=== PATIENT | female | born 1990 | race Two or more races ===

== ENCOUNTER 2017-06-05 18:31 | Emergency (ER) | payer SELFPAY ==
[~2017-06-05] VITALS: Ht 154.9 cm; Wt 56.0 kg
[2017-06-05] MEDS ORDERED: PRENATAL FORMU1 EAC4 PO (19:42)
[2017-06-05 22:12] LABS: URINE BILIRUBIN NEGATIVE (NEG); URINE BLOOD MODERATE (NEG); URINE GLUCOSE (UA) NEGATIVE (NEG); URINE KETONE MODERATE (NEG); URINE LEUKOCYTE ESTERASE NEGATIVE (NEG); URINE NITRITE NEGATIVE (NEG); URINE PROTEIN SMALL (NEG); URINE SPECIFIC GRAVITY 1.025 (1.003-1.030)
[2017-06-05 22:29] LABS: URINE APPEARANCE CLEAR; URINE COLOR BROWN
[2017-06-05 22:31] LABS: URINE WBC 0-1 /[HPF] (0-5)
== END 2017-06-05 23:38 ==
LOC: EDMED 18:31
PROVIDERS: Emergency Medicine
PROC: BY49ZZZ Ultrasonography of First Trimester, Single Fetus (ICD-10-PCS; principal; 2017-06-05)
DX: O34.81 Maternal care for other abnormalities of pelvic organs, first trimester (principal); N83.202 Unspecified ovarian cyst, left side; Z3A.01 Less than 8 weeks gestation of pregnancy